=== PATIENT | female | born 1985 ===

== ENCOUNTER 2016-05-20 15:36 | Emergency (ER) | payer MEDICAID ==
[2016-05-20 15:36] VITALS: BMI 37.4
--- NOTE | 2016-05-20 18:47 | ED PDOC ---
Arrival/HPI - General Historian: Patient <Afsaneh Aguilera - Last Filed: 05/20/16 18:44> <Carlos Burks - Last Filed: 05/20/16 20:00> - General Chief Complaint: Cough, Cold, Congestion Time Seen by Provider: 05/20/16 18:39 - History of Present Illness Narrative History of Present Illness (Text): 05/20/16 18:44 30-year-old female presents today with a four-day history of cough and nasal congestion. Patient with a history of asthma states at night she has difficulty breathing through the nose. She is complaining of a dry cough. She denies chest pain or shortness of breath at present time. 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 Positive sick contacts. Patient states she ran out of her nebulizer medication at home. No other complaints (Afsaneh Aguilera) Past Medical History - Provider Review Nursing Documentation Reviewed: Yes - Travel History Have you recently traveled outside [place] w/in the past 3 mons?: No - Infectious Disease Hx of Infectious Diseases: None - Tetanus Immunization Tetanus Immunization: Up to Date - Pulmonary Hx Asthma: Yes - Psychiatric Hx Depression: No Hx Emotional Abuse: No Hx Physical Abuse: No Hx Substance Use: No - Past Surgical History Past Surgical History: No Previous - Suicidal Assessment Feels Threatened In Home Enviroment: No <Afsaneh Aguilera - Last Filed: 05/20/16 18:44> Family/Social History - Physician Review Nursing Documentation Reviewed: Yes Family/Social History: Unknown Family HX Hx Alcohol Use: No Hx Substance Use: No Hx Substance Use Treatment: No <Afsaneh Aguilera - Last Filed: 05/20/16 18:44> Allergies/Home Meds <Afsaneh Aguilera - Last Filed: 05/20/16 18:44> <Carlos Burks - Last Filed: 05/20/16 20:00> Allergies/Adverse Reactions: Allergies peanut Allergy (Verified 05/20/16 18:40) ANAPHYLAXIS Review of Systems - Review of Systems Constitutional: Fevers. absent: Fatigue ENT: Sore Throat, Sinus Congestion Respiratory: Cough. absent: SOB, Wheezing Cardiovascular: absent: Chest Pain Gastrointestinal: absent: Abdominal Pain, Diarrhea, Nausea, Vomiting Skin: absent: Rash, Pruritis Psychiatric: absent: Anxiety, Depression <Afsaneh Aguilera - Last Filed: 05/20/16 18:44> Physical Exam Vital Signs Reviewed: Yes Temperature: Afebrile Blood Pressure: Normal Pulse: Regular Respiratory Rate: Normal Appearance: Positive for: Well-Appearing, Non-Toxic, Comfortable Pain Distress: None Mental Status: Positive for: Alert and Oriented X 3 - Systems Exam Head: Present: Atraumatic Conjunctiva: Present: Normal Ears: Present: Normal, NORMAL TM Mouth: Present: Moist Mucous Membranes Pharnyx: Present: Normal. No: ERYTHEMA, EXUDATE, TONSILS ENLARGED, Uvular Deviation, Muffled/Hoarse Voice, Soft Palate/Uvular Edema Nose (External): Present: Atraumatic Nose (Internal): Present: Engorged, Clear Mucous Neck: Present: Normal Range of Motion Respiratory/Chest: Present: Clear to Auscultation, Good Air Exchange. No: Respiratory Distress, Accessory Muscle Use, Wheezes, Rhonchi, Tachypneic Cardiovascular: Present: Regular Rate and Rhythm, Normal S1, S2. No: Murmurs Abdomen: No: Tenderness Skin: Present: Warm, Dry, Normal Color. No: Rashes Psychiatric: Present: Alert, Oriented x 3 <Afsaneh Aguilera - Last Filed: 05/20/16 18:44> Vital Signs Temp Pulse Resp BP Pulse Ox 05/20/16 17:36 98.3 F 70 18 132/74 100 Medical Decision Making <Afsaneh Aguilera - Last Filed: 05/20/16 18:44> <Carlos Burks - Last Filed: 05/20/16 20:00> ED Course and Treatment: 05/20/16 18:49 Patient is nontoxic well-appearing in no distress. Vital signs are stable. Chest x-ray: No infiltrate or effusion Zithromax prednisone I advised follow up with primary care physician within the next 2 days. I advised increase fluids and return if symptoms worsen persist or if new symptoms develop. Patient verbalizes understanding of discharge instructions and need for immediate followup. all aspects of this case were discussed the attending of record. IMPRESSION; cough, bronchitis Motrin one tablet every 6 hours as needed for pain Zithromax one tablet once daily x4 days prednisone; daily x 4 days FLonase; 2 sprays each nostril once daily. albuterol; 2 puffs every 4-6 hours as needed for cough. 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 <Carlos Burks - Last Filed: 05/20/16 20:00> Disposition/Present on Arrival - Present on Arrival Any Indicators Present on Arrival: No History of DVT/PE: No History of Uncontrolled Diabetes: No Urinary Catheter: No History Surgical Site Infection Following: None - Disposition Have Diagnosis and Disposition been Completed?: Yes Disposition Time: 18:50 Patient Plan: Discharge <Afsaneh Aguilera - Last Filed: 05/20/16 18:44> <Carlos Burks - Last Filed: 05/20/16 20:00> - Disposition Diagnosis: Cough, Bronchitis Disposition: HOME/ ROUTINE Patient Problems: Current Active Problems Problem Status Diagnosed Bronchitis Acute Cough Acute Condition: GOOD Discharge Instructions (ExitCare): Acute Cough (ED) Additional Instructions: Motrin every 6 hours as needed for pain/fever reduction Zithromax one tablet once daily x4 days prednisone; daily x 4 days FLonase; 2 sprays each nostril once daily. albuterol; 2 puffs every 4-6 hours as needed for cough. Increase fluids Followup with primary care physician the next 2 days Return if symptoms worsen persist or if new symptoms develop Prescriptions: Albuterol HFA [Ventolin HFA 90 mcg/actuation (8 g)] 2 puff IH [id number] PRN #1 inhaler PRN Reason: Cough Albuterol 0.083% [Albuterol 0.083% Inhal Shea (2.5 mg/3 ml) UD] 1 vial IH TID PRN #1 packet PRN Reason: Cough Fluticasone Nasal [Flonase] 2 spr NS DAILY #1 spr Azithromycin [Zithromax] 250 mg PO DAILY #4 tab predniSONE [predniSONE Tab] 3 tab PO DAILY #12 tab Referrals: Christiano Buckley MD [Primary Care Provider] - Follow up with primary Forms: WORK NOTE
[2016-05-20 19:42] VITALS: TEMP 98.3
[2016-05-20 22:27] VITALS: BP 132/80; PULSE 72; RESP 16; O2SAT 98
--- NOTE | 2016-05-21 08:13 | RAD ---
HISTORY: cough COMPARISON: No prior. TECHNIQUE: Chest PA and lateral FINDINGS: LUNGS: No active pulmonary disease. PLEURA: No significant pleural effusion identified. No pneumothorax apparent. CARDIOVASCULAR: Normal. OSSEOUS STRUCTURES: No significant abnormalities. VISUALIZED UPPER ABDOMEN: Normal. OTHER FINDINGS: None. IMPRESSION: No radiographic evidence of pneumonia or pleural effusion.
== END 2016-05-20 20:30 | disposition home or self-care (01) ==
LOC: ED 15:36
DX: J40 Bronchitis, not specified as acute or chronic (principal); R05 Cough

== ENCOUNTER 2016-09-18 10:01 | Emergency (ER) | payer MEDICAID ==
[2016-09-18 10:01] VITALS: BMI 37.4
[2016-09-18 10:21] VITALS: RESP 18; TEMP 99.1; O2SAT 97
--- NOTE | 2016-09-18 10:25 | ED PDOC ---
Arrival/HPI - General Chief Complaint: Chest Pain Time Seen by Provider: 09/18/16 10:10 Historian: Patient - History of Present Illness Narrative History of Present Illness (Text): 09/18/16 10:22 Dilcia Dillon is a 31 year old female, with a history of seasonal allergies and asthma, presents to the emergency department complaining of non-radiating, left sided chest pressure associated with cough since yesterday night. States she used breathing treatment for minimal relief. Denies any fever, chills, shortness of breath, nausea, vomiting, urinary symptoms, or any other complaints at this time. PMD: Time/Duration: Other (yesterday night ) Symptom Onset: Gradual Symptom Course: Unchanged Severity Level: Mild Activities at Onset: Light Context: Home Past Medical History - Provider Review Nursing Documentation Reviewed: Yes - Infectious Disease Hx of Infectious Diseases: None - Tetanus Immunization Tetanus Immunization: Up to Date - Cardiac Hx Cardiac Disorders: No - Pulmonary Hx Respiratory Disorders: Yes Hx Asthma: Yes - Neurological Hx Neurological Disorder: No Hx Alzheimer's Disease: No - HEENT Hx HEENT Disorder: No - Renal Hx Renal Disorder: No - Endocrine/Metabolic Hx Endocrine Disorders: No - Hematological/Oncological Hx Blood Disorders: No - Integumentary Hx Dermatological Disorder: No - Musculoskeletal/Rheumatological Hx Musculoskeletal Disorders: No - Gastrointestinal Hx Gastrointestinal Disorders: No - Genitourinary/Gynecological Hx Genitourinary Disorders: No - Psychiatric Hx Psychophysiologic Disorder: No Hx Depression: No Hx Emotional Abuse: No Hx Physical Abuse: No Hx Substance Use: No - Past Surgical History Past Surgical History: No Previous - Suicidal Assessment Feels Threatened In Home Enviroment: No Family/Social History - Physician Review Nursing Documentation Reviewed: Yes Family/Social History: No Known Family HX Smoking Status: Never Smoked Hx Alcohol Use: No Hx Substance Use: No Hx Substance Use Treatment: No Allergies/Home Meds Allergies/Adverse Reactions: Allergies peanut Allergy (Verified 09/18/16 10:08) ANAPHYLAXIS Review of Systems - Physician Review All systems were reviewed & negative as marked: Yes - Review of Systems Constitutional: Normal. absent: Fatigue, Fevers Respiratory: Cough. absent: SOB, Sputum Cardiovascular: absent: Palpitations Gastrointestinal: Normal. absent: Abdominal Pain, Diarrhea, Nausea, Vomiting Genitourinary Female: Normal Neurological: Normal. absent: Headache, Dizziness Psychiatric: Normal Physical Exam Vital Signs Reviewed: Yes Vital Signs Temp Pulse Resp BP Pulse Ox 09/18/16 11:32 89 18 114/71 97 09/18/16 10:10 99.1 F 94 H 18 112/69 97 Temperature: Afebrile Blood Pressure: Normal Pulse: Tachycardic Respiratory Rate: Normal Appearance: Positive for: Well-Appearing, Non-Toxic, Comfortable Pain Distress: None Mental Status: Positive for: Alert and Oriented X 3 - Systems Exam Head: Present: Atraumatic, Normocephalic Pupils: Present: PERRL Conjunctiva: Present: Normal Mouth: Present: Moist Mucous Membranes Respiratory/Chest: Present: Clear to Auscultation, Good Air Exchange, Tender to Palpation (Chest wall tenderness to palpation ). No: Respiratory Distress, Accessory Muscle Use Cardiovascular: Present: Regular Rate and Rhythm, Normal S1, S2. No: Murmurs Abdomen: Present: Normal Bowel Sounds. No: Tenderness, Distention, Peritoneal Signs, Rebound, Guarding Upper Extremity: Present: Normal Inspection. No: Cyanosis, Edema Lower Extremity: Present: Normal Inspection. No: Edema Neurological: Present: GCS=15, CN II-XII Intact, Speech Normal, Motor Func Grossly Intact, Normal Sensory Function Skin: Present: Warm, Dry, Normal Color. No: Rashes Psychiatric: Present: Alert, Oriented x 3, Normal Insight, Normal Concentration Medical Decision Making ED Course and Treatment: 09/18/16 10:26 Impression: A 31 year old female who presents to the emergency department complaining of chest pain since last night. Plan: -- EKG -- Labs, cardiac enzymes -- Chest X-ray -- Toradol -- POC -- Reassess and disposition Progress Notes: 09/18/16 10:27 EKG interpreted by me: NSR @ 73 bpm. Normal [place]. Normal interval. 09/18/16 11:56 On reevaluation, patient states that pain has improved post treatment and is comfortable to be discharged home. Advised to follow up with PMD within few days and present to the emergency department for new/worsening symptoms. - Lab Interpretations Lab Results: 09/18/16 10:27 09/18/16 10:27 Lab Results 09/18/16 10:27: Sodium 136, Potassium 3.9, Chloride 104, Carbon Dioxide 27, Anion Gap 9 L, BUN 13, Creatinine 0.5, Est GFR ( Amer) > 60, Est GFR (Non -Af Amer) > 60, Random Glucose 92, Calcium 8.7, Magnesium 1.8, Total Bilirubin 0.8, AST 21, ALT 25, Alkaline Phosphatase 60, Lactate Dehydrogenase 410, Total Creatine Kinase 78, Troponin I < 0.01, Total Protein 6.6, Albumin 3.6, Globulin 2.9, Albumin/Globulin Ratio 1.2 09/18/16 10:27: D-Dimer, Quantitative 0.19 09/18/16 10:27: WBC 7.6, RBC 4.54, Hgb 13.7, Hct 39.6, MCV 87.2, MCH 30.2, MCHC 34.6, RDW 12.4, Plt Count 239, MPV 10.1, Gran % 68.1 H, Lymph % (Auto) 24.5, Blanco % (Auto) 6.6 H, Eos % (Auto) 0.5 L, Baso % (Auto) 0.3, Gran # 5.16, Lymph # 1.9, Blanco # 0.5, Eos # 0.0, Baso # 0.02 - RAD Interpretation Radiology Orders: 09/18/16 10:22 CHEST PORTABLE [RAD] Stat - Medication Orders Current Medication Orders: Discontinued Medications Ketorolac Tromethamine (Toradol) 30 mg IVP STAT STA Stop: 09/18/16 10:24 Last Admin: 09/18/16 10:38 Dose: 30 mg - Scribe Statement The provider has reviewed the documentation as recorded by the Amina Iyer Provider Attestation: Provider Riaibe Attestation: All medical record entries made by the Amina were at my direction and personally dictated by me. I have reviewed the chart and agree that the record accurately reflects my personal performance of the history, physical exam, medical decision making, and the department course for this patient. I have also personally directed, reviewed, and agree with the discharge instructions and disposition. Disposition/Present on Arrival - Present on Arrival Any Indicators Present on Arrival: No History of DVT/PE: No History of Uncontrolled Diabetes: No Urinary Catheter: No History of Decub. Ulcer: No History Surgical Site Infection Following: None - Disposition Have Diagnosis and Disposition been Completed?: Yes Diagnosis: Acute costochondritis Disposition: HOME/ ROUTINE Disposition Time: 11:20 Condition: GOOD Discharge Instructions (ExitCare): Costochondritis (ED) Additional Instructions: Thank you for letting us take care of you today. Your provider was Dr. Hernandez. You were treated for non-cardiac chest pain. The emergency medical care you received today was directed at your acute symptoms. If you were prescribed any medication, please fill it and take as directed. It may take several days for your symptoms to resolve. Return to the Emergency Department if your symptoms worsen, do not improve, or if you have any other problems. Please contact your doctor or call one of the physicians/clinics you have been referred to that are listed on the Patient Visit Information form that is included in your discharge packet. Bring any paperwork you were given at discharge with you along with any medications you are taking to your follow up visit. Our treatment cannot replace ongoing medical care by a primary care provider (PCP) outside of the emergency department. Thank you for allowing the [facility] team to be part of your care today. Follow up with your primary doctor in 2-3 days for re-evaluation and further management. Prescriptions: Ibuprofen [Motrin] 600 mg PO Q6 PRN #20 tab PRN Reason: Pain, Moderate (4-7) Referrals: PCP,NO [Primary Care Provider] - Follow up with primary Forms: WORK NOTE
[2016-09-18 10:37] LABS: BASO # 0.02 K/mm3 (0.0-2.0); BASO % 0.3 % (0.0-3.0); EOS % 0.5 % (1.5-5.0); GRAN # 5.16 (1.4-6.5); GRAN % 68.1 % (50.0-68.0); HEMOGLOBIN 13.7 gm/dL (12.0-16.0); LYMPH # 1.9 (1.2-3.4); LYMPH % 24.5 % (22.0-35.0); MEAN CELL VOLUME 87.2 fL (80.0-105.0); MEAN CORPUSCULAR HEMOGLOBIN 30.2 pg (25.0-35.0); MEAN CORPUSCULAR HGB CONC 34.6 g/dl (31.0-37.0); MEAN PLATELET VOLUME 10.1 fl (7.0-11.0); MONO # 0.5 (0.1-0.6); MONO % 6.6 % (1.0-6.0); PLATELET COUNT 239 10^3/uL (120.0-450.0); RBC 4.54 10^6/uL (3.5-6.1); RED CELL DISTRIBUTION WIDTH 12.4 % (11.5-14.5); WHITE BLOOD COUNT 7.6 10^3/ul (4.5-11.0)
[2016-09-18 10:48] LABS: ALB/GLOB RATIO 1.2 (1.1-1.8); ALBUMIN 3.6 g/dL (3.0-4.8); ALT/SGPT 25 U/L (7-56); AST/SGOT 21 U/L (15-39); BLOOD UREA NITROGEN 13 mg/dL (7-21); CALCIUM 8.7 mg/dL (8.4-10.5); GFR AFRICAN-AMERICAN > 60; GFR NON-AFRICAN AMERICAN > 60; MAGNESIUM 1.8 mg/dL (1.7-2.2)
--- NOTE | 2016-09-18 10:50 | RAD ---
HISTORY: Chest pain COMPARISON: 05/20/2016. FINDINGS: LUNGS: The lungs are well inflated and clear. PLEURA: No significant pleural effusion identified, no pneumothorax apparent. CARDIOVASCULAR: Normal. OSSEOUS STRUCTURES: No significant abnormalities. VISUALIZED UPPER ABDOMEN: Normal. OTHER FINDINGS: None. IMPRESSION: No active pulmonary disease.
[2016-09-18 10:59] LABS: TROPONIN I < 0.01 ng/mL
[2016-09-18 11:33] VITALS: BP 114/71; PULSE 89
--- NOTE | 2016-09-18 15:54 | CARD ---
APPROVED REPORT EKG Measurement Heart [id number] <Conclusion> Normal sinus rhythm Normal ECG
== END 2016-09-18 12:36 | disposition home or self-care (01) ==
LOC: ED 10:01
DX: M94.0 Chondrocostal junction syndrome [Tietze] (principal)
CPT/HCPCS: 71010; 80053; 82550; 83615; 83735; 84484; 85025; 85378; 93005; 96374; 99284; J1885